=== PATIENT | female | born 1960 | race Two or more races ===

== ENCOUNTER → 2023-03-03 10:21 | Outpatient (BNVA) | payer MEDICARE, SELFPAY | PROVIDERS: Visit Provider Internal Medicine Rheumatology | DX: M25.50 Pain in unspecified joint (principal); M79.641 Pain in right hand; M79.642 Pain in left hand; N95.1 Menopausal and female climacteric states; R76.8 Other specified abnormal immunological findings in serum | CPT/HCPCS: 99202 ==

== ENCOUNTER 2023-03-03 11:37 | Outpatient (REF) | payer MEDICARE, MEDICAID, SELFPAY ==
--- NOTE | ~2023-03-03 | XR_ITS ---
EXAMINATION: Bilateral hand x-ray CLINICAL INFORMATION: Pain COMPARISON: None. TECHNIQUE: 3 views of each hand FINDINGS: Right: Osteopenia. No fracture or dislocation. Slight flexion at the DIP joint and extension at the PIP joint of the second and third fingers. Arthritis at the first LONG TERM the, trapezoid. The scaphoid and IP joints with joint space narrowing and osteophyte formation. Soft tissues are unremarkable. Left: Osteopenia. No fracture or dislocation. Arthritis at the first LONG TERM, trapezoid trapezium scaphoid joint and IP joints. Soft tissues are unremarkable. XR/XR hand LT min 3V IMPRESSION: Osteopenia. 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
--- NOTE | ~2023-03-03 | XR_ITS ---
EXAMINATION: Bilateral hand x-ray CLINICAL INFORMATION: Pain COMPARISON: None. TECHNIQUE: 3 views of each hand FINDINGS: Right: Osteopenia. No fracture or dislocation. Slight flexion at the DIP joint and extension at the PIP joint of the second and third fingers. Arthritis at the first LONG-TERM the, trapezoid. The scaphoid and IP joints with joint space narrowing and osteophyte formation. Soft tissues are unremarkable. Left: Osteopenia. No fracture or dislocation. Arthritis at the first LONG-TERM, trapezoid trapezium scaphoid joint and IP joints. Soft tissues are unremarkable. XR/XR hand RT min 3V IMPRESSION: Osteopenia. Bilateral osteoarthritis at the first LONG-TERM, trapezoid trapezium scaphoid joint and IP joints.
[2023-03-03 13:37] LABS: MANUAL DIFF FLAG NO
[2023-03-03 13:50] LABS: Basophils Absolute Auto 0.1 X10*3/uL (0.0-0.2); Basophils Percent Auto 0.6 % (0-2); Eosinophils Absolute Auto 0.5 X10*3/uL (0.0-0.4); Eosinophils Percent Auto 5.6 % (0-4); Hematocrit 40.5 % (37.0-47.0); Hemoglobin 13.4 g/dl (12.0-16.0); Imm Gran Abs Auto 0.04 X10*3/uL (0.00-0.03); Imm Gran Pct Auto 0.5 % (0.0-0.4); Lymphocytes Absolute Auto 1.6 X10*3/uL (1.2-4.9); Lymphocytes Percent Auto 18.8 % (20-40); Mean Corpuscular HGB Conc 33.1 g/dl (31.0-35.0); Mean Corpuscular Volume 84.6 fL (80.0-98.0); Mean Platelet Volume 9.5 fL (9.4-12.3); Monocytes Absolute Auto 0.9 X10*3/uL (0.1-1.2); Neutrophils Absolute Auto 5.5 x10*3/uL (2.0-8.3); Neutrophils Percent Auto 64.5 % (45-73); Platelet Count 322 X10*3/uL (160-400); Red Blood Count 4.79 X10*6/uL (4.20-5.50); Red Cell Distribution Width 13.9 % (11.0-16.0); White Blood Count 8.6 X10*3/uL (4.8-10.8)
[2023-03-03 13:51] LABS: Alanine Aminotransferase 50 U/L (0-31); Albumin Level 4.7 g/dL (3.5-5.0); Alkaline Phosphatase 84 U/L (39-117); Anion Gap 13 (12-20); Aspartate Amino Transferase 39 U/L (5-31); Bilirubin Total 1.2 mg/dL (0.0-1.0); Blood Urea Nitrogen 8 mg/dL (9-16); C Reactive Protein 5.68 mg/dL (< or = 0.50); Calcium 9.8 mg/dL (8.4-10.2); Carbon Dioxide 26 mmol/L (22-29); Chloride 99 mmol/L (96-108); Estimated Glomerular Filt Rate > 60; Glucose Random 100 mg/dL (60-115); Potassium 4.3 mmol/L (3.3-5.1); Sodium 134 mmol/L (135-145)
[2023-03-03 14:17] LABS: Hepatitis B Core Antibody Nonreactive (Nonreactive); Hepatitis B Surface Antigen Negative (Negative); ~Hepatitis A Antibody IgM Nonreactive (Nonreactive); ~Hepatitis B Surface Antibody NONREACTIVE (Nonreactive); ~Hepatitis C Antibody Nonreactive (Nonreactive)
[2023-03-03 14:50] LABS: Erythrocyte Sedimentation Rate 7 MM/HR (0-20)
[2023-03-04 04:26] LABS: HBS Num1 0.26 mIU/mL (0-7.99); HBc Num1 0.09 S/CO (0.00-0.79); HBsAGNum1 0.27 S/CO (0.00-0.99); ~HepC Num1 0.08 S/CO (0.00-0.79)
[2023-03-05 23:43] LABS: Antibody to SS-A Antigen <1.0 NEG AI (<1.0 NEG); Antibody to SS-B Antigen <1.0 NEG AI (<1.0 NEG)
== END 2023-03-03 11:38 | disposition home or self-care (01) ==
LOC: HO.10HDL 11:37
PROVIDERS: PCP Internal Medicine; Visit Provider Internal Medicine Rheumatology
DX: M79.641 Pain in right hand (principal); M79.642 Pain in left hand; R76.8 Other specified abnormal immunological findings in serum
CPT/HCPCS: 36415; 73130; 80053; 85025; 85652; 86140; 86235; 86704; 86706; 86709; 86803; 87340

== ENCOUNTER 2023-03-11 14:43 | Outpatient (REF) | payer MEDICARE, MEDICAID, SELFPAY ==
--- NOTE | ~2023-03-11 | MM_ITS ---
EXAMINATION: BONE DENSITOMETRY CLINICAL INDICATION: Menopausal. COMPARISON: None (current study represents initial baseline exam). TECHNIQUE: Using a [employer] DXA System (software version: 13.1) manufactured by [employer], dual-energy x-ray absorptiometry was performed of the lumbar spine and left hip. The images are of good technical quality. Summary results are attached. FINDINGS: AP SPINE L1-L4: BMD 0.932 g/cm2, Z-score -0.4, T-score -2.1, osteopenia. LEFT FEMUR, NECK: BMD 0.678 g/cm2, Z-score -1.1, T-score -2.6, osteoporosis. LEFT FEMUR, TOTAL: BMD 0.737 g/cm2, Z-score -0.9, T-score -2.1, osteopenia. IDENTIFIED RISK FACTORS: Rheumatoid arthritis. Menopause. HISTORY OF FRACTURE: None listed. MEDICATIONS: Multivitamin. MM/XR DEXA axial skeleton IMPRESSION: 1. DIAGNOSIS: Osteoporosis based on the lowest T-score value of -2.6 in the femoral neck applying World Health Organization criteria. 2. 10-YEAR FRACTURE RISK PREDICTION, FRAX: According to the guidelines, FRAX calculation should only be performed on patients in the osteopenia bone density category. Therefore, FRAX was not performed on this patient.? 3. Treatment Recommendations: NOF guidelines recommend consideration for treatment in postmenopausal women and men age 50 and older presenting with the following: -A hip or vertebral (clinical or morphometric) fracture. -T-score less than or equal to -2.5 at the femoral neck or spine after appropriate evaluation to exclude secondary causes. -Low bone mass at the hip or spine and a 10-year fracture probability by FRAX of greater than or equal to 3% for hip fracture or greater than or equal to 20% for major osteoporotic fracture based on the [place] adapted WHO algorithm. 4. Other Recommendations: All treatment decisions require clinical judgment and consideration of individual patient factors, including patient preferences, comorbidities, previous drug use, risk factors not captured in the FRAX model (e.g. frailty, falls, vitamin D deficiency, increased bone turnover, interval significant decline in bone density) and possible under or overestimation of fracture risk by FRAX. Additional medical evaluation for secondary cause of low bone mineral density may be appropriate. FUTURE SCAN RECOMMENDATION: People with diagnosed cases of osteoporosis or at high risk for fracture should have regular bone mineral density tests. For patients eligible for Medicare, routine testing is allowed once every 2 years. The testing frequency can be increased to one year for patients who have rapidly progressing disease, those who are receiving or discontinuing medical therapy to restore bone mass, or have additional risk factors.
== END 2023-03-11 14:44 | disposition home or self-care (01) ==
LOC: HO.MAMMO 14:43
PROVIDERS: PCP Internal Medicine; Visit Provider Internal Medicine Rheumatology
DX: Z13.820 Encounter for screening for osteoporosis (principal); Z78.0 Asymptomatic menopausal state
CPT/HCPCS: 77080

== ENCOUNTER → 2023-04-14 10:30 | Outpatient (BNVA) | payer MEDICARE, MEDICAID, SELFPAY | PROVIDERS: PCP Internal Medicine; Visit Provider Internal Medicine Rheumatology | DX: M81.0 Age-related osteoporosis without current pathological fracture (principal); M19.041 Primary osteoarthritis, right hand; M19.042 Primary osteoarthritis, left hand; R76.8 Other specified abnormal immunological findings in serum; M05.80 Other rheumatoid arthritis with rheumatoid factor of unspecified site | CPT/HCPCS: 99212 ==

== ENCOUNTER 2023-08-13 10:40 | Outpatient (AMB) | payer MEDICARE, MEDICAID, SELFPAY ==
[2023-08-13 10:44] VITALS: BP 132/82; PULSE 87; TEMP 36.6; O2SAT 97; BMI 21.4
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
== END 2023-08-13 11:15 | disposition home or self-care (01) ==
PROVIDERS: PCP Internal Medicine; Visit Provider Nurse Practitioner Family
DX: M05.79 Rheumatoid arthritis with rheumatoid factor of multiple sites without organ or systems involvement (principal); M19.041 Primary osteoarthritis, right hand; M19.042 Primary osteoarthritis, left hand; M54.2 Cervicalgia; G89.29 Other chronic pain; M81.0 Age-related osteoporosis without current pathological fracture
CPT/HCPCS: 99214

== ENCOUNTER 2023-08-13 10:40 | Outpatient (REF) | payer MEDICARE, MEDICAID, SELFPAY ==
--- NOTE | ~2023-08-13 | XR_ITS ---
EXAMINATION: XR CERVICAL SPINE CLINICAL INFORMATION: Neck pain. COMPARISON: None available. TECHNIQUE: 4 views of the cervical spine. FINDINGS: Degenerative changes with asymmetric left-sided hypertrophic change at the C1-C2 articulation. Slight rightward curvature of the cervicothoracic spine. Bones are diffusely demineralized. Advanced multilevel degenerative changes in the cervical spine with loss of disc space height and hypertrophic change, most marked at C5-C6 and C6-C7. Mild 3 mm anterolisthesis of C4 on C5. Multilevel uncovertebral hypertrophy. XR/XR cervical spine 3V IMPRESSION: Advanced multilevel degenerative changes in the cervical spine with loss of disc space height and hypertrophic change, most marked at C5-C6 and C6-C7.
== END 2023-08-13 10:41 | disposition home or self-care (01) ==
LOC: HO.XRAY 10:40
PROVIDERS: PCP Internal Medicine; Visit Provider Nurse Practitioner Family
DX: M81.0 Age-related osteoporosis without current pathological fracture (principal); M05.80 Other rheumatoid arthritis with rheumatoid factor of unspecified site; M19.041 Primary osteoarthritis, right hand; M19.042 Primary osteoarthritis, left hand; M54.2 Cervicalgia; G89.29 Other chronic pain; Z79.899 Other long term (current) drug therapy
CPT/HCPCS: 72040; 99212

== ENCOUNTER 2023-08-26 12:21 | Outpatient (REF) | payer MEDICARE, MEDICAID, SELFPAY ==
[2023-08-26 12:31] LABS: MANUAL DIFF FLAG NO
[2023-08-26 12:56] LABS: Basophils Percent Auto 0.8 % (0-2); Eosinophils Absolute Auto 0.2 X10*3/uL (0.0-0.4); Eosinophils Percent Auto 3.8 % (0-4); Hematocrit 44.5 % (37.0-47.0); Hemoglobin 14.8 g/dl (12.0-16.0); Imm Gran Abs Auto 0.01 X10*3/uL (0.00-0.03); Imm Gran Pct Auto 0.2 % (0.0-0.4); Lymphocytes Absolute Auto 1.8 X10*3/uL (1.2-4.9); Lymphocytes Percent Auto 33.8 % (20-40); Mean Corpuscular HGB Conc 33.3 g/dl (31.0-35.0); Mean Corpuscular Hemoglobin 27.9 pg (27.0-33.0); Mean Corpuscular Volume 83.8 fL (80.0-98.0); Mean Platelet Volume 8.7 fL (9.4-12.3); Monocytes Absolute Auto 0.6 X10*3/uL (0.1-1.2); Monocytes Percent Auto 10.6 % (2-11); Neutrophils Absolute Auto 2.7 x10*3/uL (2.0-8.3); Neutrophils Percent Auto 50.8 % (45-73); Platelet Count 325 X10*3/uL (160-400); Red Blood Count 5.31 X10*6/uL (4.20-5.50); Red Cell Distribution Width 13.2 % (11.0-16.0); White Blood Count 5.3 X10*3/uL (4.8-10.8)
[2023-08-26 13:17] LABS: Alanine Aminotransferase 35 U/L (0-31); Albumin Level 4.8 g/dL (3.5-5.0); Alkaline Phosphatase 74 U/L (39-117); Anion Gap 16 (12-20); Aspartate Amino Transferase 35 U/L (5-31); Bilirubin Total 0.7 mg/dL (0.0-1.0); Blood Urea Nitrogen 8 mg/dL (9-16); C Reactive Protein < 0.10 mg/dL (< or = 0.50); Calcium 10.1 mg/dL (8.4-10.2); Carbon Dioxide 26 mmol/L (22-29); Chloride 99 mmol/L (96-108); Estimated Glomerular Filt Rate > 60; Glucose Random 100 mg/dL (60-115); Potassium 4.1 mmol/L (3.3-5.1); Sodium 137 mmol/L (135-145); Total Protein 7.7 g/dL (6.5-8.0)
[2023-08-26 13:38] LABS: Erythrocyte Sedimentation Rate 2 MM/HR (0-20)
== END 2023-08-26 12:22 | disposition home or self-care (01) ==
LOC: HO.LAB 12:21
PROVIDERS: PCP Internal Medicine; Visit Provider Nurse Practitioner Family
DX: M05.80 Other rheumatoid arthritis with rheumatoid factor of unspecified site (principal); Z79.899 Other long term (current) drug therapy
CPT/HCPCS: 36415; 80053; 85025; 85652; 86140

== ENCOUNTER 2023-09-03 10:43 | Outpatient (AMB) | payer MEDICARE, MEDICAID, SELFPAY ==
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
[2023-09-03 10:55] VITALS: BP 124/72; PULSE 91; TEMP 36.3; O2SAT 96; BMI 21.1
== END 2023-09-03 11:43 | disposition home or self-care (01) ==
PROVIDERS: PCP Internal Medicine; Visit Provider Nurse Practitioner Family
DX: M05.89 Other rheumatoid arthritis with rheumatoid factor of multiple sites (principal); Z79.631 Long term (current) use of antimetabolite agent
CPT/HCPCS: 99213

== ENCOUNTER → 2023-09-03 10:43 | Outpatient (BNVA) | payer MEDICARE, MEDICAID, SELFPAY | PROVIDERS: PCP Internal Medicine; Visit Provider Nurse Practitioner Family | DX: M05.89 Other rheumatoid arthritis with rheumatoid factor of multiple sites (principal); Z79.631 Long term (current) use of antimetabolite agent | CPT/HCPCS: 99212 ==

== ENCOUNTER 2023-11-26 14:09 | Outpatient (AMB) | payer MEDICARE, MEDICAID, SELFPAY ==
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
[2023-11-26 14:13] VITALS: BP 126/80; PULSE 74; TEMP 36.3; O2SAT 97; BMI 20.9
== END 2023-11-26 14:47 | disposition home or self-care (01) ==
PROVIDERS: PCP Internal Medicine; Visit Provider Nurse Practitioner Family
DX: M05.89 Other rheumatoid arthritis with rheumatoid factor of multiple sites (principal); Z79.60 Long term (current) use of unspecified immunomodulators and immunosuppressants
CPT/HCPCS: 99214

== ENCOUNTER → 2023-11-26 14:09 | Outpatient (BNVA) | payer MEDICARE, MEDICAID, SELFPAY | PROVIDERS: PCP Internal Medicine; Visit Provider Nurse Practitioner Family | DX: M05.89 Other rheumatoid arthritis with rheumatoid factor of multiple sites (principal); Z79.60 Long term (current) use of unspecified immunomodulators and immunosuppressants | CPT/HCPCS: 99212 ==

== ENCOUNTER 2024-02-12 11:47 | Outpatient (REF) | payer MEDICARE, MEDICAID, SELFPAY ==
[2024-02-12 16:18] LABS: Alanine Aminotransferase 37 U/L (0-31); Albumin Level 4.7 g/dL (3.5-5.0); Alkaline Phosphatase 67 U/L (39-117); Anion Gap 11 (12-20); Aspartate Amino Transferase 34 U/L (5-31); Bilirubin Total 0.5 mg/dL (0.0-1.0); Blood Urea Nitrogen 9 mg/dL (9-16); Calcium 10.1 mg/dL (8.4-10.2); Carbon Dioxide 30 mmol/L (22-29); Chloride 98 mmol/L (96-108); Estimated Glomerular Filt Rate > 60; Glucose Random 82 mg/dL (60-115); Potassium 3.9 mmol/L (3.3-5.1); Sodium 135 mmol/L (135-145); Total Protein 7.2 g/dL (6.5-8.0)
[2024-02-13 04:13] LABS: HBS Num1 0.32 mIU/mL (0-7.99); HBc Num1 0.07 S/CO (0.00-0.79); HBsAGNum1 0.31 S/CO (0.00-0.99); Hepatitis A Antibody IgM 0.19 Index (0-0.79); Hepatitis B Core Antibody Nonreactive (Nonreactive); Hepatitis B Surface Antigen Negative (Negative); ~HepC Num1 0.08 S/CO (0.00-0.79); ~Hepatitis A Antibody IgM Nonreactive (Nonreactive); ~Hepatitis B Surface Antibody NONREACTIVE (Nonreactive); ~Hepatitis C Antibody Nonreactive (Nonreactive)
[2024-02-15 13:02] LABS: TS Negative Control Passed; TS Panel A 0; TS Panel B 0; TS Positive Control Passed; TSpotTB Negative (Negative)
== END 2024-02-12 11:48 | disposition home or self-care (01) ==
LOC: HO.LAB 11:47
PROVIDERS: PCP Internal Medicine; Visit Provider Nurse Practitioner Family
DX: M05.80 Other rheumatoid arthritis with rheumatoid factor of unspecified site (principal); Z11.59 Encounter for screening for other viral diseases; Z72.89 Other problems related to lifestyle
CPT/HCPCS: 36415; 80053; 86481; 86704; 86706; 86709; 86803; 87340

== ENCOUNTER 2024-02-16 13:45 | Outpatient (AMB) | payer MEDICARE, MEDICAID, SELFPAY ==
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
[2024-02-16 13:54] VITALS: BP 147/92; PULSE 100; O2SAT 94; BMI 20.6
== END 2024-02-16 14:31 | disposition home or self-care (01) ==
LOC: HO.RHE 13:45
PROVIDERS: PCP Internal Medicine; Visit Provider Nurse Practitioner Family
DX: M05.89 Other rheumatoid arthritis with rheumatoid factor of multiple sites (principal); Z79.60 Long term (current) use of unspecified immunomodulators and immunosuppressants
CPT/HCPCS: 99214; G2211

== ENCOUNTER → 2024-02-16 13:45 | Outpatient (BNVA) | payer MEDICARE, MEDICAID, SELFPAY | PROVIDERS: PCP Internal Medicine; Visit Provider Nurse Practitioner Family | DX: M05.89 Other rheumatoid arthritis with rheumatoid factor of multiple sites (principal); T88.7XXA Unspecified adverse effect of drug or medicament, initial encounter; X58.XXXA Exposure to other specified factors, initial encounter; Y93.9 Activity, unspecified; Y92.9 Unspecified place or not applicable; Y99.9 Unspecified external cause status; Z71.2 Person consulting for explanation of examination or test findings; Z79.899 Other long term (current) drug therapy; Z79.60 Long term (current) use of unspecified immunomodulators and immunosuppressants | CPT/HCPCS: 99212 ==

== ENCOUNTER 2024-06-22 10:25 | Outpatient (AMB) | payer MEDICARE, MEDICAID, SELFPAY ==
[2024-06-22 10:30] VITALS: BP 126/68; PULSE 64; O2SAT 98; BMI 20.4
--- NOTE | 2024-06-22 10:30 | A.OFFVIS_ITS ---
Vital Signs 06/22/24 10:30 Height 5 ft 3.5 in Weight 117 lb 1.047 oz BMI 20.4 BP 126/68 Blood Pressure Location Lt brachial Position Sitting Pulse 64 Pulse Source Pulse Oximeter Pulse Oximetry (%) 98 Oxygen Delivery Method Room Air Intake Visit Reasons: RA in Neck and hands Intake Note: Patient is here for RA in neck and hands, she feels it's going to her back for about 8 months, feels getting worse in right hip and tendon. She states the Humira makes her lose her appetite. Allergies epinephrine Allergy (Mild, Verified 06/22/24 10:34) heart attack rosuvastatin Allergy (Mild, Verified 06/22/24 10:34) heart attack Sulfa (Sulfonamide Antibiotics) [SULFA (SULFONAMIDE ANTIBIOTICS)] Allergy (Unknown, Unverified 06/22/24 10:34) HIVES,SWELLING lithium Adverse Reaction (Unknown, Unverified 06/22/24 10:34) Unknown Medication List - Last Reconciled 06/22/24 by Elsy Pillai MD acetaminophen 500 - 1,000 mg PO TID alendronate 70 mg PO QWEEK amlodipine 5 mg PO DAILY atorvastatin 40 mg PO DAILY clotrimazole-betamethasone 1-0.05 % appl topical BID cyclobenzaprine 10 mg PO TID folic acid 1 mg PO DAILY Humira(CF) Pen (adalimumab) 40 mg (0.4 mL) subcut Q2W NS lorazepam 1 mg PO BID PRN mirtazapine 1/2 tab orally bedtime; mometasone 50 mcg/actuation 2 sprays intranasal DAILY naproxen 250 mg PO Q6H PRN nitroglycerin 0 mg sublingual quetiapine mg PO valacyclovir 1,000 mg PO Q OTHER DAY zaleplon 10 mg PO BEDTIME PRN HPI Comments Details: This is a 63-year-old female with seropositive RA who presents for follow-up. She remains on Humira 40 mg every other week. She states that she has been having some right lower back pain. She had an x-ray done by her PCP and was told that she might have tendonitis, she also has pain on the outside of both her hips. She denies any pain in her neck or hands. She is compliant with her Humira. She has lost some weight and lost her appetite, she thinks it may be related to the Humira. She also states that she is under significant stress, she lost all her children in the past few years [facility] Medical History (Updated 06/22/24 @ 11:02 by Elsy Pillai MD) Other rheumatoid arthritis with rheumatoid factor of multiple sites Long-term use of immunosuppressant medication Neck pain, chronic NSTEMI (non-ST elevated myocardial infarction) Bipolar 1 disorder Anxiety and depression Multiple joint pain Surgical History H/O sinus surgery History of cardiac catheterization Family History Father Aneurysm of artery Mother Depression High cholesterol Social History Alcohol intake: current Alcohol intake frequency: a few times a month Alcohol t ype: wine Patient Tobacco Use Status: Never used Tobacco Review of Systems [facility] [place] Reports back pain, Reports arthralgias and Denies joint swelling Physical Exam Vital Signs: Last Vital Signs Pulse 64 06/22/24 10:30 BP 126/68 06/22/24 10:30 Pulse Ox 98 06/22/24 10:30 Oxygen Delivery Method Room Air 06/22/24 10:30 BMI result Body Mass Index 20.4 Const General: cooperative, healthy appearing and comfortable Nutritional Appearance: average body habitus Orientation/consciousness: patient oriented x3 Limitations: no limitations HEENT Head: Yes normocephalic and Yes atraumatic Mouth: moist mucous membranes Resp Effort & Inspection: normal respiratory effort and able to speak in complete sentences Auscultation: clear to auscultation bilaterally Cardio Rate: regular rate Skin General skin exam: no rashes or lesions noted Neuro General: patient oriented x3 Extrem Other: Sweaty hands Significant osteoarthritic changes of both hands with prominent [place]'s nodes [place]-neck deformity of left 3rd finger No active synovitis Normal range of motion of elbows and shoulders without pain Normal range of motion of neck No knee pain with flexion-extension bilaterally Bilateral trochanteric bursa area tenderness Negative straight leg raise test bilaterally Bilateral osteoarthritic changes of both feet with prominent bunions Assessment & Plan Assessment & Plan (1) Other rheumatoid arthritis with rheumatoid factor of multiple sites: Comment: ++RF++CCP dx 2022. Deforming with C1-C2 involvement Started MTX 08/2023 N/V on both Oral and Injectable.HCQ not effective Humira 11/2023 effective Code(s): M05.89 - Other rheumatoid arthritis with rheumatoid factor of multiple sites Category: Medical Plan: This is a 63-year-old female with seropositive RA who presents for follow-up. This is her 1st visit with me. Patient is doing quite well on Humira 40 mg every other week. There is no active synovitis on exam. 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 Patient fully aware. Advised patient to seek medical care LINDSEY if patient has an infection and advised patient to stop the medication until the infection is resolved. (5) Osteoarthritis of hands, bilateral: Code(s): M19.041 - Primary osteoarthritis, right hand; M19.042 - Primary osteoarthritis, left hand Category: Medical Qualifiers: Osteoarthritis type: primary Qualified Code(s): M19.041 - Primary osteoarthritis, right hand; M19.042 - Primary osteoarthritis, left hand (6) Osteoporosis: Comment: 03/17 T-scores: LS spine-2.1, hip-2.1, femoral neck -2.6 Alendronate started 03/2023 Code(s): M81.0 - Age-related osteoporosis without current pathological fracture Category: Medical Qualifiers: Osteoporosis type: age-related Presence of current pathological fracture: without current pathological fracture Qualified Code(s): M81.0 - Age- related osteoporosis without current pathological fracture Plan: Continue with alendronate Plan I spent 45 minutes reviewing patient's chart, evaluating patient, ordering diagnostic workup, counseling patient and documenting in the chart Orders: Orders PT Evaluation and Treatment Today M51.36 - Other intervertebral disc degeneration, lumbar region, M70.61 - Trochanteric bursitis, right hip, M70.62 - Trochanteric bursitis, left hip Complete Blood Count Auto Diff Today M05.89 - Other rheumatoid arthritis with rheumatoid factor of multiple sites, Z79.60 - rat exterminator (current) use of uns pecified immunomodulators and immunosuppressants Comprehensive Met. Panel Today M05.89 - Other rheumatoid arthritis with rheumatoid factor of multiple sites, Z79.60 - rat exterminator (current) use of unspecified immunomodulators and immunosuppressants Erythrocyte Sedimentation Rate Today M05.89 - Other rheumatoid arthritis with rheumatoid factor of multiple sites, Z79.60 - USP (current) use of unspecified immunomodulators and immunosuppressants C Reactive Protein Today M05.89 - Other rheumatoid arthritis with rheumatoid factor of multiple sites, Z79.60 - USP (current) use of unspecified immunomodulators and immunosuppressants Medications: Changed From alendronate 70 mg PO QWEEK 12 tabs 3RF M81.0 - Age-related osteoporosis without current pathological fracture To alendronate Take 1 tab once weekly, 1st thing in the morning, on an empty stomach, with a large glass of water (at least 6 oz) and stay upright for 30 minutes 70 mg PO QWEEK 12 tabs 3RF M81.0 - Age-related osteoporosis without current pathological fracture Coding Level of Care Code Est Pt Level 5 (62800) Complex EM visit Add On G2211 Diagnoses Other rheumatoid arthritis with rheumatoid factor of multiple sites M05.89 Lumbar degenerative disc disease M51.36 Greater trochanteric bursitis of both hips M70.61; M70.62 Long-term use of immunosuppressant medication Z79.60 Primary osteoarthritis of both hands M19.041; M19.042 Osteoarthritis type: primary Age-related osteoporosis without current pathological fracture M81.0 Osteoporosis type: age-related Presence of current pathological fracture: without current pathological fracture
== END 2024-06-22 10:58 | disposition home or self-care (01) ==
PROVIDERS: PCP Internal Medicine; Visit Provider Student in an Organized Health Care Education/Training Program
DX: M05.89 Other rheumatoid arthritis with rheumatoid factor of multiple sites (principal); M51.36 Other intervertebral disc degeneration, lumbar region; M70.61 Trochanteric bursitis, right hip; M70.62 Trochanteric bursitis, left hip; Z79.60 Long term (current) use of unspecified immunomodulators and immunosuppressants; M19.041 Primary osteoarthritis, right hand; M19.042 Primary osteoarthritis, left hand; M81.0 Age-related osteoporosis without current pathological fracture
CPT/HCPCS: 99215; G2211

== ENCOUNTER → 2024-06-22 10:25 | Outpatient (BNVA) | payer MEDICARE, MEDICAID, SELFPAY | PROVIDERS: PCP Internal Medicine; Visit Provider Student in an Organized Health Care Education/Training Program | DX: Z13.89 Encounter for screening for other disorder (principal) | CPT/HCPCS: 99212 ==

== ENCOUNTER 2024-06-22 11:06 | Outpatient (REF) | payer MEDICARE, MEDICAID, SELFPAY ==
[2024-06-22 13:11] LABS: MANUAL DIFF FLAG NO
[2024-06-22 13:15] LABS: Basophils Absolute Auto 0.1 X10*3/uL (0.0-0.2); Basophils Percent Auto 0.7 % (0-2); Eosinophils Absolute Auto 0.2 X10*3/uL (0.0-0.4); Hematocrit 41.5 % (37.0-47.0); Imm Gran Abs Auto 0.02 X10*3/uL (0.00-0.03); Imm Gran Pct Auto 0.3 % (0.0-0.4); Lymphocytes Absolute Auto 2.6 X10*3/uL (1.2-4.9); Lymphocytes Percent Auto 35.1 % (20-40); Mean Corpuscular HGB Conc 33.7 g/dl (31.0-35.0); Mean Corpuscular Hemoglobin 28.6 pg (27.0-33.0); Mean Corpuscular Volume 84.9 fL (80.0-98.0); Mean Platelet Volume 8.3 fL (9.4-12.3); Monocytes Absolute Auto 0.9 X10*3/uL (0.1-1.2); Monocytes Percent Auto 11.6 % (2-11); Neutrophils Absolute Auto 3.6 x10*3/uL (2.0-8.3); Neutrophils Percent Auto 49.3 % (45-73); Platelet Count 307 X10*3/uL (160-400); Red Blood Count 4.89 X10*6/uL (4.20-5.50); Red Cell Distribution Width 13.3 % (11.0-16.0); White Blood Count 7.4 X10*3/uL (4.8-10.8)
[2024-06-22 13:31] LABS: Alanine Aminotransferase 25 U/L (0-31); Albumin Level 4.6 g/dL (3.5-5.0); Alkaline Phosphatase 73 U/L (39-117); Anion Gap 12 (12-20); Aspartate Amino Transferase 25 U/L (5-31); Bilirubin Total 0.4 mg/dL (0.0-1.0); Blood Urea Nitrogen 9 mg/dL (9-16); C Reactive Protein < 0.10 mg/dL (< or = 0.50); Calcium 10.1 mg/dL (8.4-10.2); Carbon Dioxide 29 mmol/L (22-29); Chloride 96 mmol/L (96-108); Estimated Glomerular Filt Rate > 60; Glucose Random 104 mg/dL (60-115); Potassium 4.1 mmol/L (3.3-5.1); Sodium 133 mmol/L (135-145); Total Protein 7.4 g/dL (6.5-8.0)
[2024-06-22 14:09] LABS: Erythrocyte Sedimentation Rate 3 MM/HR (0-20)
== END 2024-06-22 11:07 | disposition home or self-care (01) ==
LOC: HO.10HDL 11:06
PROVIDERS: Visit Provider Student in an Organized Health Care Education/Training Program
DX: M05.89 Other rheumatoid arthritis with rheumatoid factor of multiple sites (principal); Z79.60 Long term (current) use of unspecified immunomodulators and immunosuppressants
CPT/HCPCS: 36415; 80053; 85025; 85652; 86140; 99212

== ENCOUNTER 2024-10-10 10:08 | Outpatient (AMB) | payer MEDICARE, MEDICAID, SELFPAY ==
--- NOTE | 2024-10-10 10:09 | A.OFFVIS_ITS ---
Vital Signs 10/10/24 10:15 Height 5 ft 3.5 in Weight 111 lb 12.39 oz BMI 19.5 BP 122/68 Blood Pressure Location Lt brachial Position Sitting Pulse 108 H Pulse Source Pulse Oximeter Pulse Oximetry (%) 8 L Oxygen Delivery Method Room Air Intake Visit Reasons: RA/FLARE UP Intake Note: Patient presents for RA. having flare ups right back shoulder, both hands and left knee. Allergies epinephrine Allergy (Mild, Verified 10/10/24 10:14) heart attack rosuvastatin Allergy (Mild, Verified 10/10/24 10:14) heart attack Sulfa (Sulfonamide Antibiotics) [SULFA (SULFONAMIDE ANTIBIOTICS)] Allergy (Unknown, Verified 10/10/24 10:14) HIVES,SWELLING lithium Adverse Reaction (Unknown, Verified 10/10/24 10:14) Unknown Medication List - Last Reconciled 10/10/24 by Elsy Pillai MD acetaminophen 500 - 1,000 mg PO TID adalimumab (Humira(CF) Pen) 40 mg (0.4 mL) subcut Q2W alendronate 70 mg PO QWEEK amlodipine 5 mg PO DAILY atorvastatin 40 mg PO DAILY clotrimazole-betamethasone 1-0.05 % appl topical BID cyclobenzaprine 10 mg PO TID folic acid 1 mg PO DAILY lorazepam 1 mg PO BID PRN mirtazapine 1/2 tab orally bedtime; mometasone 50 mcg/actuation 2 sprays intranasal DAILY naproxen 250 mg PO Q6H PRN nitroglycerin 0 mg sublingual prednisone Take 4 tabs a day for 1 week then 3 tabs a day for 1 week then 2 tabs a day for 1 week then 1 tab a week for 1 week then stop quetiapine mg PO valacyclovir 1,000 mg PO Q OTHER DAY zaleplon 10 mg PO BEDTIME PRN HPI Comments Details: This is a 63-year-old female with seropositive RA who presents for follow-up. She remains on Humira 40 mg every other week. She states that over the last 2 months she has been having repetitive flare-ups affecting multiple joints including both hands, right shoulder, left knee, elbows. She has been on varying doses of prednisone with little relief. Also associated with GI upset. She has lost 6 lb due to reduced appetite over the last 6 weeks or so. [facility] Medical History Other rheumatoid arthritis with rheumatoid factor of multiple sites Long-term use of immunosuppressant medication Neck pain, chronic NSTEMI (non-ST elevated myocardial infarction) Bipolar 1 disorder Anxiety and depression Multiple joint pain Surgical History H/O sinus surgery History of cardiac catheterization Family History Father Aneurysm of artery Mother Depression High cholesterol Social History Alcohol intake: current Alcohol intake frequency: a few times a month Alcohol type: wine Patient Tobacco Use Status: Never used Tobacco Review of Systems ENT Reports neck pain Musc Reports back pain, Reports arthralgias, Reports joint swelling, Reports neck pain and Reports stiffness Physical Exam Vital Signs: Last Vital Signs Pulse 108 H 10/10/24 10:15 BP 122/68 10/10/24 10:15 Pulse Ox 8 L 10/10/24 10:15 Oxygen Delivery Method Room Air 10/10/24 10:15 BMI result Body Mass Index 19.5 Const General: cooperative, healthy appearing and comfortable Nutritional Appearance: average body habitus Orientation/consciousness: patient oriented x3 Limitations: no limitations HEENT Head: Yes normocephalic and Yes atraumatic Mouth: moist mucous membranes Resp Effort & Inspection: normal respiratory effort and able to speak in complete sentences Auscultation: clear to auscultation bilaterally Cardio Rate: regular rate Skin General skin exam: no rashes or lesions noted Neuro General: patient oriented x3 Extrem Other: Sweaty hands Swelling erythema and tenderness of right 2nd MCP Right 3rd MCP swelling and tenderness [place]-neck deformity of left 3rd finger Left 2nd and 3rd MCP swelling and tenderness Able to fully abduct right shoulder with some pain Left knee pain posteriorly with flexion-extension No ankle swelling or tenderness bilaterally Bilateral osteoarthritic changes of both hands Negative MTP squeeze test bilaterally Assessment & Plan Assessment & Plan (1) Other rheumatoid arthritis with rheumatoid factor of multiple sites: Comment: ++RF++CCP dx 2022. Deforming with C1-C2 involvement Started MTX 08/2023 N/V on both Oral and Injectable.HCQ not effective Humira 11/2023 Code(s): M05.89 - Other rheumatoid arthritis with rheumatoid factor of multiple sites Category: Medical Plan: This is a 63-year-old female with seropositive RA who presents for follow-up. She remains on Humira 40 mg every other week. Over the last 6 weeks vision has been having recurrent flare-ups. On exam she has active synovitis. Apparently patient has developed secondary nonresponse to Humira. We will need to change DMARDs, need to switch mode of action. Discussed risks and benefits of Actemra. Patient agreed to proceed. Will start prior authorization for Actemra Discontinue Humira Start prednisone taper for relief . Take omeprazole with it Labs today (2) Long-term use of immunosuppressant medication: Code(s): Z79.60 - intermediate (current) use of unspecified immunomodulators and immunosuppressants Category: Medical Plan: Side effects of Actemra were discussed with the patient in detail including increased risk of infection, , reactivation of latent TB, possible increased risk of solid and skin tumors. Patient fully aware. Advised patient to seek medical care LINDSEY if patient has an infection and advised patient to stop the medication until the infection is resolved. (3) Osteoporosis: Comment: 03/17 T-scores: LS spine-2.1, hip-2.1, femoral neck -2.6 Alendronate started 03/2023 Code(s): M81.0 - Age-related osteoporosis without current pathological fracture Category: Medical Qualifiers: Osteoporosis type: age-related Presence of current pathological fracture: without current pathological fracture Qualified Code(s): M81.0 - Age- related osteoporosis without current pathological fracture Plan: Continue with alendronate Plan I spent 45 minutes reviewing patient's chart, evaluating patient, ordering diagnostic workup, counseling patient and documenting in the chart Orders: Orders Complete Blood Count Auto Diff 3 Months M05. - Other rheumatoid arthritis with rheumatoid factor of multiple sites C Reactive Protein 3 Months M05.89 - Other rheumatoid arthritis with rheumatoid factor of multiple sites Erythrocyte Sedimentation Rate 3 Months M05.89 - Other rheumatoid arthritis with rheumatoid factor of multiple sites Complete Blood Count Auto Diff Today M05. - Other rheumatoid arthritis with rheumatoid factor of multiple sites Comprehensive Met. Panel Today M05. - Other rheumatoid arthritis with rheumatoid factor of multiple sites Comprehensive Met. Panel 3 Months M05. 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 Medications: New omeprazole 40 mg PO DAILY 30 caps 1RF tocilizumab (Actemra ACTPen) 162 mg (0.9 mL) subcut Q14D 1.8 mL 2RF M05.80 - Other rheumatoid arthritis with rheumatoid factor of unspecified site Changed From prednisone Take 3 tabs daily for 5 days then 2 tabs daily for 5 days then 1 tab daily for 5 days then stop 30 tabs 0RF To prednisone Take 4 tabs a day for 1 week then 3 tabs a day for 1 week then 2 tabs a day for 1 week then 1 tab a week for 1 week then stop 70 tabs 0RF Discontinued adalimumab (Humira(CF) Pen) Discontinued Reason: Doctor's Order 40 mg (0.4 mL) subcut Q2W 2 ea 2RF Coding Level of Care Code Est Pt Level 4 (56482) Complex EM visit Add On G2211 Diagnoses Other rheumatoid arthritis with rheumatoid factor of multiple sites M05.89 Long-term use of immunosuppressant medication Z79.60 Age-related osteoporosis without current pathological fracture M81.0 Osteoporosis type: age-related Presence of current pathological fracture: without current pathological fracture
[2024-10-10 10:15] VITALS: BP 122/68; PULSE 108; O2SAT 8; BMI 19.5
== END 2024-10-10 10:40 | disposition home or self-care (01) ==
LOC: HO.RHE 10:08
PROVIDERS: PCP Internal Medicine; Visit Provider Student in an Organized Health Care Education/Training Program
DX: M05.89 Other rheumatoid arthritis with rheumatoid factor of multiple sites (principal); Z79.60 Long term (current) use of unspecified immunomodulators and immunosuppressants; M81.0 Age-related osteoporosis without current pathological fracture
CPT/HCPCS: 99214; G2211

== ENCOUNTER 2024-10-10 10:45 | Outpatient (REF) | payer MEDICARE, MEDICAID, SELFPAY ==
[2024-10-10 13:40] LABS: MANUAL DIFF FLAG NO
[2024-10-10 13:52] LABS: Basophils Percent Auto 0.2 % (0-2); Eosinophils Percent Auto 0.1 % (0-4); Hematocrit 42.8 % (37.0-47.0); Hemoglobin 14.6 g/dl (12.0-16.0); Imm Gran Abs Auto 0.08 X10*3/uL (0.00-0.03); Imm Gran Pct Auto 0.5 % (0.0-0.4); Lymphocytes Absolute Auto 1.3 X10*3/uL (1.2-4.9); Lymphocytes Percent Auto 7.8 % (20-40); Mean Corpuscular HGB Conc 34.1 g/dl (31.0-35.0); Mean Corpuscular Hemoglobin 28.5 pg (27.0-33.0); Mean Corpuscular Volume 83.4 fL (80.0-98.0); Mean Platelet Volume 8.4 fL (9.4-12.3); Monocytes Absolute Auto 1.1 X10*3/uL (0.1-1.2); Monocytes Percent Auto 6.6 % (2-11); Neutrophils Absolute Auto 14.5 x10*3/uL (2.0-8.3); Neutrophils Percent Auto 84.8 % (45-73); Platelet Count 367 X10*3/uL (160-400); Red Blood Count 5.13 X10*6/uL (4.20-5.50); Red Cell Distribution Width 13.4 % (11.0-16.0)
[2024-10-10 14:29] LABS: Alanine Aminotransferase 27 U/L (0-31); Albumin Level 4.5 g/dL (3.5-5.0); Alkaline Phosphatase 62 U/L (39-117); Anion Gap 13 (12-20); Aspartate Amino Transferase 21 U/L (5-31); Bilirubin Total 0.8 mg/dL (0.0-1.0); Blood Urea Nitrogen 12 mg/dL (9-16); C Reactive Protein 1.51 mg/dL (< or = 0.50); Calcium 9.6 mg/dL (8.4-10.2); Carbon Dioxide 26 mmol/L (22-29); Chloride 94 mmol/L (96-108); Estimated Glomerular Filt Rate > 60; Glucose Random 141 mg/dL (60-115); Potassium 3.9 mmol/L (3.3-5.1); Sodium 129 mmol/L (135-145); Total Protein 7.6 g/dL (6.5-8.0)
[2024-10-10 14:32] LABS: Erythrocyte Sedimentation Rate 7 MM/HR (0-20)
== END 2024-10-10 10:46 | disposition home or self-care (01) ==
LOC: HO.10HDL 10:45
PROVIDERS: Visit Provider Student in an Organized Health Care Education/Training Program
DX: M05.89 Other rheumatoid arthritis with rheumatoid factor of multiple sites (principal); M81.0 Age-related osteoporosis without current pathological fracture; Z79.620 Long term (current) use of immunosuppressive biologic
CPT/HCPCS: 80053; 85025; 85652; 86140; 99212

== ENCOUNTER 2024-11-03 15:16 | Outpatient (AMB) | payer MEDICARE, MEDICAID, SELFPAY ==
[2024-11-03 15:21] VITALS: BP 130/82; PULSE 46; BMI 20.1
--- NOTE | 2024-11-03 15:21 | A.OFFVIS_ITS ---
Vital Signs 11/03/24 15:21 Height 5 ft 3.5 in Weight 115 lb 8.356 oz BMI 20.1 BP 130/82 Blood Pressure Location Rt brachial Position Sitting Pulse 46 L Pulse Source Pulse Oximeter Intake Visit Reasons: RA Intake Note: Patient last seen by Doctor Elsy Pillai on 10/03/24. Presents today for RA follow up and test results. 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 Accompanied by: Self / Same As Patient Allergies epinephrine Allergy (Mild, Verified 11/03/24 15:25) heart attack rosuvastatin Allergy (Mild, Verified 11/03/24 15:) heart attack Sulfa (Sulfonamide Antibiotics) [SULFA (SULFONAMIDE ANTIBIOTICS)] Allergy (Unknown, Verified 11/03/24 15:) HIVES,SWELLING lithium Adverse Reaction (Unknown, Verified 11/03/24:) Unknown Medication List - Last Reconciled 11/03/24 by Elsy Pillai MD acetaminophen 500 - 1,000 mg PO TID alendronate 70 mg PO QWEEK amlodipine 5 mg PO DAILY atorvastatin 40 mg PO DAILY clotrimazole-betamethasone 1-0.05 % appl topical BID cyclobenzaprine 10 mg PO TID folic acid 1 mg PO DAILY lorazepam 1 mg PO BID PRN mirtazapine 1/2 tab orally bedtime; mometasone 50 mcg/actuation 2 sprays intranasal DAILY naproxen 250 mg PO Q6H PRN nitroglycerin 0 mg sublingual omeprazole 40 mg PO DAILY prednisone Take 4 tabs a day for 1 week then 3 tabs a day for 1 week then 2 tabs a day for 1 week then 1 tab a week for 1 week then stop quetiapine mg PO tocilizumab (Actemra ACTPen) 162 mg (0.9 mL) subcut Q14D valacyclovir 1,000 mg PO Q OTHER DAY zaleplon 10 mg PO BEDTIME PRN HPI Comments Details: This is a 63-year-old female with seropositive RA who presents for follow-up. She received 2 doses of the Actemra injection. She remains on the prednisone taper and has 3 more days to go. She has not noticed any significant side effects with Actemra. She stated that she feels much better overall. The pain swelling and stiffness of her fingers significantly improved. [facility] Medical History Other rheumatoid arthritis with rheumatoid factor of multiple sites Long-term use of immunosuppressant medication Neck pain, chronic NSTEMI (non-ST elevated myocardial infarction) Bipolar 1 disorder Anxiety and depression Multiple joint pain Surgical History H/O sinus surgery History of cardiac catheterization Family History Father Aneurysm of artery Mother Depression High cholesterol Social History Alcohol intake: current Alcohol intake frequency: a few times a month Alcohol type: wine Patient Tobacco Use Status: Never used Tobacco Review of Systems Musc Denies arthralgias, Denies joint swelling and Denies stiffness Physical Exam Vital Signs: Last Vital Signs Pulse 46 L 11/03/24 15:21 BP 130/82 11/03/24 15:21 BMI result Body Mass Index 20.1 Const General: cooperative, healthy appearing and comfortable Nutritional Appearance: average body habitus Orientation/consciousness: patient oriented x3 Limitations: no limitations HEENT Head: Yes normocephalic and Yes atraumatic Mouth: moist mucous membranes Resp Effort & Inspection: normal respiratory effort and able to speak in complete sentences Auscultation: clear to auscultation bilaterally Cardio Rate: regular rate Skin General skin exam: no rashes or lesions noted Neuro General: patient oriented x3 Extrem Other: Sweaty hands The swelling erythema and tenderness of the right 2nd MCP significantly improved, today she only has minimal swelling of the right 2nd MCP, not tender Bilateral wrist swelling and tenderness resolved Synovitis of the hands essentially resolved Normal pain-free range of motion of wrists, elbows and shoulders No knee pain with full flexion-extension bilaterally No ankle swelling or tenderness bilaterally Assessment & Plan Assessment & Plan (1) Other rheumatoid arthritis with rheumatoid factor of multiple sites: Comment: ++RF++CCP dx 2022. Deforming with C1-C2 involvement Started MTX 08/2023 N/V on both Oral and Injectable.HCQ not effective Humira 11/2023. Discontinue 09/2024 due to secondary nonresponse Actemra started 09/2024 effective Code(s): M05.89 - Other rheumatoid arthritis with rheumatoid factor of multiple sites Category: Medical Plan: This is a 63-year-old female with seropositive RA who presents for follow-up. She received 2 doses of Actemra injection and is finishing up her prednisone taper. Doing much better overall. Synovitis essentially resolved. Continue with Actemra 162 mg every other week Labs before next visit in 3 months Patient stated that her brother works as a PROPERTY DISPOSAL OFFICER for her. Today she requested some paperwork that describes her condition and her medications. She stated that her brothers weaver hand loom requested the paperwork. She stated that it will hair her brother and his partner. She gave verbal consent to release her medical information. Letter provided to patient (2) Long-term use of immunosuppressant medication: Code(s): Z79.60 - nursing home (current) use of unspecified immunomodulators and immunosuppressants Category: Medical Plan: Side effects of Actemra were discussed with the patient in detail including increased risk of infection, , reactivation of latent TB, possible increased risk of solid and skin tumors. Patient fully aware. Advised patient to seek medical care LINDSEY if patient has an infection and advised patient to stop the medication until the infection is resolved. (3) Osteoporosis: Comment: 03/17 T-scores: LS spine-2.1, hip-2.1, femoral neck -2.6 Alendronate started 03/2023 Code(s): M81.0 - Age-related osteoporosis without current pathological fracture Category: Medical Qualifiers: Osteoporosis type: age-related Presence of current pathological fracture: without current pathological fracture Qualified Code(s): M81.0 - Age- related osteoporosis without current pathological fracture Plan: Continue with alendronate Plan I spent 45 minutes reviewing patient's chart, evaluating patient, ordering diagnostic workup, drafting letter for patient, counseling patient and documenti ng in the chart Coding Level of Care Code Est Pt Level 4 (09677) Complex EM visit Add On G2211 Diagnoses Other rheumatoid arthritis with rheumatoid factor of multiple sites M05.89 Long-term use of immunosuppressant medication Z79.60 Age-related osteoporosis without current pathological fracture M81.0 Osteoporosis type: age-related Presence of current pathological fracture: without current pathological fracture
== END 2024-11-03 15:49 | disposition home or self-care (01) ==
LOC: HO.RHE 15:16
PROVIDERS: PCP Internal Medicine; Visit Provider Student in an Organized Health Care Education/Training Program
DX: M05.89 Other rheumatoid arthritis with rheumatoid factor of multiple sites (principal); Z79.60 Long term (current) use of unspecified immunomodulators and immunosuppressants; M81.0 Age-related osteoporosis without current pathological fracture
CPT/HCPCS: 99214; G2211

== ENCOUNTER → 2024-11-03 15:16 | Outpatient (BNVA) | payer MEDICARE, MEDICAID, SELFPAY | PROVIDERS: PCP Internal Medicine; Visit Provider Student in an Organized Health Care Education/Training Program | DX: M05.89 Other rheumatoid arthritis with rheumatoid factor of multiple sites (principal); M81.0 Age-related osteoporosis without current pathological fracture; Z79.60 Long term (current) use of unspecified immunomodulators and immunosuppressants | CPT/HCPCS: 99212 ==

== ENCOUNTER 2025-02-06 11:29 | Outpatient (REF) | payer MEDICARE, MEDICAID, SELFPAY ==
[2025-02-06 11:55] LABS: MANUAL DIFF FLAG NO
[2025-02-06 12:23] LABS: Basophils Percent Auto 0.8 % (0-2); Eosinophils Absolute Auto 0.2 X10*3/uL (0.0-0.4); Eosinophils Percent Auto 5.6 % (0-4); Hematocrit 40.8 % (37.0-47.0); Imm Gran Abs Auto 0.01 X10*3/uL (0.00-0.03); Imm Gran Pct Auto 0.3 % (0.0-0.4); Lymphocytes Absolute Auto 1.4 X10*3/uL (1.2-4.9); Lymphocytes Percent Auto 38.3 % (20-40); Mean Corpuscular HGB Conc 34.3 g/dl (31.0-35.0); Mean Corpuscular Hemoglobin 29.2 pg (27.0-33.0); Mean Platelet Volume 8.5 fL (9.4-12.3); Monocytes Absolute Auto 0.5 X10*3/uL (0.1-1.2); Monocytes Percent Auto 13.1 % (2-11); Neutrophils Absolute Auto 1.5 x10*3/uL (2.0-8.3); Neutrophils Percent Auto 41.9 % (45-73); Platelet Count 282 X10*3/uL (160-400); Red Cell Distribution Width 11.9 % (11.0-16.0); White Blood Count 3.6 X10*3/uL (4.8-10.8)
[2025-02-06 12:59] LABS: Alanine Aminotransferase 26 U/L (0-31); Albumin Level 4.5 g/dL (3.5-5.0); Alkaline Phosphatase 61 U/L (39-117); Anion Gap 12 (12-20); Aspartate Amino Transferase 27 U/L (5-31); Bilirubin Total 0.7 mg/dL (0.0-1.0); Blood Urea Nitrogen 9 mg/dL (9-16); C Reactive Protein < 0.04 mg/dL (< or = 0.50); Calcium 9.6 mg/dL (8.4-10.2); Carbon Dioxide 27 mmol/L (22-29); Chloride 92 mmol/L (96-108); Estimated Glomerular Filt Rate > 60; Glucose Random 113 mg/dL (60-115); Potassium 3.9 mmol/L (3.3-5.1); Sodium 127 mmol/L (135-145); Total Protein 6.9 g/dL (6.5-8.0)
[2025-02-06 13:00] LABS: Erythrocyte Sedimentation Rate 1 MM/HR (0-20)
== END 2025-02-06 11:30 | disposition home or self-care (01) ==
LOC: HO.LAB 11:29
PROVIDERS: PCP Internal Medicine; Visit Provider Student in an Organized Health Care Education/Training Program
DX: M05.89 Other rheumatoid arthritis with rheumatoid factor of multiple sites (principal)
CPT/HCPCS: 36415; 80053; 85025; 85652; 86140

== ENCOUNTER 2025-02-17 12:47 | Outpatient (AMB) | payer MEDICARE, MEDICAID, SELFPAY ==
[2025-02-17 12:56] VITALS: BP 122/70; PULSE 87; O2SAT 97; BMI 19.2
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
== END 2025-02-17 13:32 | disposition home or self-care (01) ==
LOC: HO.RHE 12:47
PROVIDERS: PCP Internal Medicine; Visit Provider Student in an Organized Health Care Education/Training Program
DX: M05.80 Other rheumatoid arthritis with rheumatoid factor of unspecified site (principal); M81.0 Age-related osteoporosis without current pathological fracture; Z51.81 Encounter for therapeutic drug level monitoring; Z79.620 Long term (current) use of immunosuppressive biologic
CPT/HCPCS: 99214; G2211

== ENCOUNTER → 2025-02-17 12:47 | Outpatient (BNVA) | payer MEDICARE, MEDICAID, SELFPAY | PROVIDERS: PCP Internal Medicine; Visit Provider Student in an Organized Health Care Education/Training Program | DX: M06.9 Rheumatoid arthritis, unspecified (principal); M19.90 Unspecified osteoarthritis, unspecified site; M05.80 Other rheumatoid arthritis with rheumatoid factor of unspecified site; M81.0 Age-related osteoporosis without current pathological fracture; E55.9 Vitamin D deficiency, unspecified; M19.041 Primary osteoarthritis, right hand; M19.042 Primary osteoarthritis, left hand; Z51.81 Encounter for therapeutic drug level monitoring; Z79.620 Long term (current) use of immunosuppressive biologic | CPT/HCPCS: 99212 ==

== ENCOUNTER 2025-05-26 12:45 | Outpatient (REF) | payer MEDICARE, MEDICAID, SELFPAY ==
--- NOTE | ~2025-05-26 | MM_ITS ---
EXAMINATION: DXA BONE DENSITY AXIAL HISTORY: M81.0 - Age-related osteoporosis without current pathological fracture TECHNIQUE: AMKAI Dual energy absorptiometry (DEXA) of the lumbar spine, total left hip, and femoral neck was performed. COMPARISON: Comparison is made with the prior examination dated 03/11/2023. FINDINGS: The bone mineral density of the lumbar spine is 0.888 g/cm2, corresponding to a T-score of -2.6, and a Z-score of -0.5. This is indicative of osteoporosis. This represents a BMD change of -3.5% compared to the prior exam. This is not statistically significant. The bone mineral density of the left total hip is 0.714 g/cm2, corresponding to a T-score of -2.3, and a Z-score of -0.8. This is indicative of osteopenia. This represents a BMD change of -3.1% compared to the prior exam. This is not statistically significant. The bone mineral density of the left femoral neck is 0.729 g/cm2, corresponding to a T-score of -2.2, and a Z-score of -0.4. This is indicative of osteopenia. This represents a BMD change of 7.5% compared to the prior exam. FRACTURE RISK: The FRAX index suggests a ten year probability of major osteoporotic fracture of 7.6%, and of hip fracture 1.6%. MM/XR DEXA axial skeleton IMPRESSION: Based on bone mineral density, and according to World Health Organization (WHO) criteria, the diagnosis is consistent with osteoporosis. Statistically, 68% of repeat scans fall within 1 SD (+/- 0.010 g/cm2 for AP spine L1-L4) and 1 SD (+/- 0.012 g/cm2 for femur total) FRAX is a trademark of the [employer]'s [place] [facility], a World Health Organization (WHO) Collaborating Center. Electronically signed by: Andres Hernandez MD 05/29/2025 07:09 AM EDT
== END 2025-05-26 12:46 | disposition home or self-care (01) ==
LOC: HO.MAMMO 12:45
PROVIDERS: Visit Provider Student in an Organized Health Care Education/Training Program
DX: M81.0 Age-related osteoporosis without current pathological fracture (principal)
CPT/HCPCS: 77080

== ENCOUNTER → 2025-05-26 13:00 | Outpatient (BNV) | payer MEDICARE, MEDICAID, SELFPAY | PROVIDERS: Visit Provider Radiology Diagnostic Radiology | DX: E28.39 Other primary ovarian failure (principal) | CPT/HCPCS: 77080 ==

== ENCOUNTER 2025-07-03 12:52 | Outpatient (AMB) | payer MEDICARE, MEDICAID, SELFPAY ==
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
[2025-07-03 13:07] VITALS: BP 130/72; PULSE 87; O2SAT 97; BMI 19.3
== END 2025-07-03 13:31 | disposition home or self-care (01) ==
LOC: HO.RHES 12:53
PROVIDERS: PCP Internal Medicine; Visit Provider Student in an Organized Health Care Education/Training Program
DX: M05.80 Other rheumatoid arthritis with rheumatoid factor of unspecified site (principal); M81.0 Age-related osteoporosis without current pathological fracture; Z51.81 Encounter for therapeutic drug level monitoring; Z79.620 Long term (current) use of immunosuppressive biologic; Z79.83 Long term (current) use of bisphosphonates
CPT/HCPCS: 99214; G2211

== ENCOUNTER 2025-07-03 12:52 | Outpatient (REF) | payer MEDICARE, MEDICAID, SELFPAY ==
[2025-07-03 17:35] LABS: MANUAL DIFF FLAG NO
[2025-07-03 17:38] LABS: Hematocrit 41.0 % (37.0-47.0); Hemoglobin 14.1 g/dl (12.0-16.0); Imm Gran Abs Auto 0.01 X10*3/uL (0.00-0.03); Imm Gran Pct Auto 0.2 % (0.0-0.4); Lymphocytes Absolute Auto 1.6 X10*3/uL (1.2-4.9); Mean Corpuscular HGB Conc 34.4 g/dl (31.0-35.0); Mean Corpuscular Hemoglobin 29.6 pg (27.0-33.0); Mean Corpuscular Volume 86.0 fL (80.0-98.0); NRBC Abs Auto 0.000 X10*3/uL (0.0-0.012); NRBC Pct Auto 0.0 /100WBC (0.0-0.2); Platelet Count 217 X10*3/uL (160-400); Red Blood Count 4.77 X10*6/uL (4.20-5.50); White Blood Count 4.1 X10*3/uL (4.8-10.8)
[2025-07-03 18:03] LABS: Alanine Aminotransferase 37 U/L (0-31); Albumin Level 5.1 g/dL (3.5-5.0); Alkaline Phosphatase 42 U/L (39-117); Anion Gap 12 (12-20); Aspartate Amino Transferase 38 U/L (5-31); Blood Urea Nitrogen 12 mg/dL (9-16); Calcium 9.7 mg/dL (8.4-10.2); Carbon Dioxide 28 mmol/L (22-29); Chloride 97 mmol/L (96-108); Cholesterol 215 mg/dL (<200); Estimated Glomerular Filt Rate > 60; HDL Cholesterol 85 mg/dL (>40); Potassium 4.4 mmol/L (3.3-5.1); Sodium 133 mmol/L (135-145); Total Protein 7.5 g/dL (6.5-8.0); Triglycerides 136 mg/dL (<150)
[2025-07-04 04:12] LABS: HBS Num1 0.00 mIU/mL (0-7.99); HBc Num1 0.04 S/CO (0.00-0.79); HBsAGNum1 0.68 S/CO (0.00-0.99); Hepatitis A Antibody IgM 0.24 Index (0-0.79); Hepatitis B Surface Antigen Negative (Negative); ~HepC Num1 0.13 S/CO (0.00-0.79); ~Hepatitis A Antibody IgM Nonreactive (Nonreactive); ~Hepatitis B Surface Antibody NONREACTIVE (Nonreactive); ~Hepatitis C Antibody Nonreactive (Nonreactive)
[2025-07-06 09:04] LABS: TS Negative Control Passed; TS Panel A 0; TS Panel B 0; TS Positive Control Passed; TSpotTB Negative (Negative)
== END 2025-07-03 12:53 | disposition home or self-care (01) ==
LOC: HO.HKASLDS 12:52
PROVIDERS: Visit Provider Student in an Organized Health Care Education/Training Program
DX: M05.80 Other rheumatoid arthritis with rheumatoid factor of unspecified site (principal); E55.9 Vitamin D deficiency, unspecified; M81.0 Age-related osteoporosis without current pathological fracture; Z51.81 Encounter for therapeutic drug level monitoring; Z79.620 Long term (current) use of immunosuppressive biologic; Z79.83 Long term (current) use of bisphosphonates; Z79.899 Other long term (current) drug therapy
CPT/HCPCS: 36415; 80053; 80061; 82306; 85025; 85652; 86140; 86481; 86704; 86706; 86709; 86803; 87340; 99212